=== PATIENT | male | born 1955 | race Caucasian/White ===

== ENCOUNTER 2020-12-15 07:04 | Emergency (ER) | payer OTHER ==
[~2020-12-15] VITALS: Ht 172.7 cm; Wt 90.9 kg
[~2020-12-15 07:04] MED LIST: METHADONE PO; UNK INSULIN
[2020-12-15] MEDS ORDERED: INSLAN SQ (07:15)
[2020-12-15] MEDS ORDERED: ASPI-1450 PO (07:15)
[2020-12-15] MEDS ORDERED: INSU100V SQ (07:15)
[2020-12-15 07:21] LABS: GLUCOSE,POINT OF CARE 164 MG/DL (70-110)
[2020-12-15] MEDS ORDERED: PERTUSS(ACELL),DIPH,TET VAC/PF 0.5 ML SYRINGE IM. ONE (08:00)
[2020-12-15 09:08] VITALS: BP 156/88
== END 2020-12-15 09:28 | disposition home or self-care (01) ==
LOC: EMS 07:08
DX: S40.011A Contusion of right shoulder, initial encounter (principal); S00.03XA Contusion of scalp, initial encounter; M54.2 Cervicalgia; E11.9 Type 2 diabetes mellitus without complications; I10 Essential (primary) hypertension; F17.210 Nicotine dependence, cigarettes, uncomplicated; Z90.89 Acquired absence of other organs; Z88.0 Allergy status to penicillin; Z79.4 Long term (current) use of insulin; W01.0XXA Fall on same level from slipping, tripping and stumbling without subsequent striking against object, initial encounter; Y93.01 Activity, walking, marching and hiking; Y92.89 Other specified places as the place of occurrence of the external cause; Y99.8 Other external cause status
CPT/HCPCS: 70450; 72125; 82962; 90471; 90715; 99285